=== PATIENT | female | born 1950 | race Caucasian/White ===

== ENCOUNTER 2019-11-19 03:11 | Observation (INO) | payer OTHER, MEDICARE ==
[~2019-11-19] VITALS: Ht 157.5 cm; Wt 102.7 kg
[2019-11-19] MEDS ORDERED: CEFTRIAXONE PMX 1GM/50ML 50 ML IVPB ONE (03:30)
[2019-11-19] MEDS ORDERED: LORazepam 2 MG/ML, 1ML IVPush ONE (03:30)
[2019-11-19] MEDS ORDERED: ONDANSETRON 2MG/ML, 2ML IVPush ONE (03:30)
[2019-11-19] MEDS ORDERED: SODIUM CHLORIDE FLUSH 10ML SYR IVF ONE (03:30)
[2019-11-19] MEDS ORDERED: AZITHROMYCIN 500 MG in SODIUM CHLORIDE 0.9% 250 ML IVPB ONE (03:30)
[2019-11-19] MEDS ORDERED: ASPIRIN 325 MG TABLET PO ONE (03:30)
[2019-11-19 03:35] LABS: BASOPHILS # (AUTO) 0.04 x10^3/uL (0-0.1); BASOPHILS % (AUTO) 0 % (0-1); EOSINOPHILS # (AUTO) 0.27 x10^3/uL (0-0.4); EOSINOPHILS % (AUTO) 2 % (1-7); LYMPHOCYTES # (AUTO) 2.33 x10^3/uL (1-3.4); LYMPHOCYTES % (AUTO) 19 % (22-44); MD NO; MEAN CORPUSCULAR HEMOGLOBIN 30.6 pg (27.0-34.8); MEAN CORPUSCULAR VOLUME 92.8 fL (80-100); MEAN PLATELET VOLUME 8.6 fL (7.4-10.4); MONOCYTES # (AUTO) 0.88 x10^3/uL (0.2-0.8); MONOCYTES % (AUTO) 7 % (2-9); NEUTROPHILS # (AUTO) 8.57 x10^3/uL (1.8-6.8); NEUTROPHILS % (AUTO) 71 % (42-75); PLATELET COUNT 308 x10^3/uL (130-400); RED BLOOD COUNT 4.95 x10^6/uL (3.82-5.3); RED CELL DISTRIBUTION WIDTH 13.6 % (9.6-15.2)
[2019-11-19 03:44] LABS: INTERNATIONAL NORMALIZED RATIO 0.92 (0.93-1.1); PROTHROMBIN TIME 9.7 Seconds (9.6-11.5)
[2019-11-19 03:46] LABS: ALANINE AMINOTRANSFERASE 29 U/L (12-78); ALBUMIN 3.3 g/dL (3.4-5.0); ANION GAP 4 mmol/L (5-15); CALCIUM 8.4 mg/dL (8.5-10.1); CHLORIDE 111 mmol/L (98-107); CREATININE 1.05 mg/dL (0.55-1.02)
[2019-11-19 03:50] LABS: ALKALINE PHOSPHATASE 139 U/L (45-117); BILIRUBIN,TOTAL 0.3 mg/dL (0.2-1.0); TOTAL PROTEIN 6.9 g/dL (6.4-8.2); TROPONIN I < 0.015 ng/mL (0.000-0.045)
[2019-11-19] MEDS ORDERED: HEPARIN 5,000 UNITS/ML, 1ML IV ONE (04:00)
[2019-11-19] MEDS ORDERED: HEPARIN 5,000 UNITS/ML, 1ML IV PRN (04:00)
[2019-11-19] MEDS ORDERED: HEPARIN 25,000 UNITS/250ML PMX 250 ML IV PRN (04:00)
--- NOTE | 2019-11-19 04:50 | NUR ---
PT EDUCATED ON NEED FOR URINE SAMPLE, PT STS UNABLE TO PEE
[2019-11-19] MEDS ORDERED: OMNIPAQUE 350 MG/ML, 100ML BOTTLE ONE (06:05)
[2019-11-19] MEDS ORDERED: LISINOPRIL (06:21)
[2019-11-19] MEDS ORDERED: ATORVASTATIN (06:21)
[2019-11-19 07:43] LABS: MICROSCOPIC NOT IND
[2019-11-19 07:45] LABS: CULTURE INDICATED? NO
[2019-11-19] MEDS ORDERED: OXYcodone IR 5MG TABLET PO PRN (08:30)
[2019-11-19] MEDS ORDERED: POLYETHYLENE GLYCOL 17 GM PACKET PO PRN (08:30)
[2019-11-19] MEDS ORDERED: ACETAMINOPHEN 325 MG TABLET PO PRN (08:30)
[2019-11-19] MEDS ORDERED: PROMETHAZINE 25 MG/ML, 1ML IM PRN (08:30)
[2019-11-19] MEDS ORDERED: DOCUSATE 100 MG CAPSULE PO PRN (08:30)
[2019-11-19] MEDS ORDERED: morphine SULFATE 10 MG/ML, 1ML IVPush PRN (08:30)
[2019-11-19] MEDS ORDERED: hydrALAzine 20 MG/ML, 1ML IVPush PRN (08:30)
[2019-11-19] MEDS ORDERED: ONDANSETRON ODT 4 MG PO PRN (08:30)
[2019-11-19] MEDS ORDERED: BISACODYL 10 MG SUPP PR PRN (08:30)
--- NOTE | 2019-11-19 08:43 | NUR ---
PT TO MRI VIA CONCEPCION
[2019-11-19 09:02] LABS: FREE T4 (FREE THYROXINE) 1.09 ng/dL (0.76-1.46)
[2019-11-19] MEDS ORDERED: ASPIRIN 325 MG TABLET EC ONE (09:32)
[2019-11-19] MEDS ORDERED: ONDANSETRON 2MG/ML, 2ML ONE (09:32)
[2019-11-19] MEDS ORDERED: HEPARIN 5,000 UNITS/ML, 1ML ONE (09:32)
[2019-11-19] MEDS: SODIUM CHLORIDE 0.9% 1,000 ML IV SCH ×2 (09:39→21:57)
[2019-11-19] MEDS: ASPIRIN 325 MG TABLET EC PO SCH (09:39)
[2019-11-19] MEDS: HEPARIN 5,000 UNITS/ML, 1ML SQ SCH ×2 (09:43→16:54)
[2019-11-19] MEDS ORDERED: LISINOPRIL 10 MG TABLET ONE (11:38)
[2019-11-19] MEDS: LISINOPRIL 10 MG TABLET PO SCH (11:40)
[2019-11-19 13:24] VITALS: BP 161/77
[2019-11-19 15:23] LABS: TROPONIN I < 0.015 ng/mL (0.000-0.045)
[2019-11-19 17:41] LABS: TROPONIN I < 0.015 ng/mL (0.000-0.045)
[2019-11-19 18:40] VITALS: BP 162/82
[2019-11-19 20:21] LABS: TROPONIN I < 0.015 ng/mL (0.000-0.045)
[2019-11-19] MEDS: ATORVASTATIN 40 MG TABLET PO SCH ×2 (21:00→21:47)
[2019-11-19] MEDS: ONDANSETRON 2MG/ML, 2ML IVPush PRN (21:47)
[2019-11-20] VITALS (7 sets, daily range): BP systolic 145–175; BP diastolic 65–120
[2019-11-20] MEDS: HEPARIN 5,000 UNITS/ML, 1ML SQ SCH ×3 (00:30→16:12)
[2019-11-20] MEDS: ASPIRIN 325 MG TABLET EC PO SCH (01:24)
[2019-11-20 06:43] LABS: ALANINE AMINOTRANSFERASE 27 U/L (12-78); ALBUMIN 2.8 g/dL (3.4-5.0); ANION GAP 4 mmol/L (5-15); CALCIUM 8.4 mg/dL (8.5-10.1); CHLORIDE 114 mmol/L (98-107); CREATININE 0.95 mg/dL (0.55-1.02)
[2019-11-20 06:46] LABS: ALKALINE PHOSPHATASE 134 U/L (45-117); BILIRUBIN,TOTAL 0.3 mg/dL (0.2-1.0); CHOL/HDL RATIO 3.3; CHOLESTEROL, TOTAL 160 mg/dL (140-239); HDL CHOL % 31 % (28-40); HDL CHOLESTEROL (DIRECT) 49 mg/dL (40-60); LDL CHOLESTEROL,CALCULATED 82 mg/dL (54-169); LDL/HDL RATIO 1.7 (0.5-3.0); TOTAL PROTEIN 6.6 g/dL (6.4-8.2); TRIGLYCERIDES 144 mg/dL (50-200); VLDL CHOLESTEROL 29 mg/dL (0-25)
[2019-11-20 07:40] LABS: BASOPHILS # (AUTO) 0.04 x10^3/uL (0-0.1); BASOPHILS % (AUTO) 0 % (0-1); EOSINOPHILS % (AUTO) 2 % (1-7); LYMPHOCYTES # (AUTO) 3.04 x10^3/uL (1-3.4); LYMPHOCYTES % (AUTO) 26 % (22-44); MD NO; MEAN CORPUSCULAR HEMOGLOBIN 30.7 pg (27.0-34.8); MEAN CORPUSCULAR HGB CONC 32.9 g/dL (32.4-35.8); MEAN CORPUSCULAR VOLUME 93.1 fL (80-100); MEAN PLATELET VOLUME 8.1 fL (7.4-10.4); MONOCYTES # (AUTO) 0.76 x10^3/uL (0.2-0.8); MONOCYTES % (AUTO) 7 % (2-9); NEUTROPHILS # (AUTO) 7.65 x10^3/uL (1.8-6.8); NEUTROPHILS % (AUTO) 65 % (42-75); PLATELET COUNT 328 x10^3/uL (130-400); RED CELL DISTRIBUTION WIDTH 13.6 % (9.6-15.2)
[2019-11-20] MEDS: LISINOPRIL 10 MG TABLET PO SCH (08:15)
[2019-11-20] MEDS: ONDANSETRON 2MG/ML, 2ML IVPush PRN ×2 (08:17→15:22)
[2019-11-20] MEDS ORDERED: REGADENOSON 0.4 MG/5 ML SYRINGE ONE (09:22)
[2019-11-20] MEDS ORDERED: AMLO-150 PO (15:54)
[2019-11-20] MEDS ORDERED: LISI-167 PO (15:54)
[2019-11-20] MEDS ORDERED: CLON-275 PO (15:54)
[2019-11-20] MEDS ORDERED: LISINOPRIL 20 MG TABLET PO SCH (16:00)
[2019-11-20] MEDS ORDERED: MECLIZINE 12.5 MG TABLET PO ONE (16:30)
[2019-11-20] MEDS ORDERED: ONDA4TAB7 PO (16:44)
[2019-11-20] MEDS ORDERED: AMLODIPINE 10 MG TAB ONE (18:19)
[2019-11-21] MEDS ORDERED: AMLODIPINE 10 MG TAB PO SCH (09:00)
== END 2019-11-20 18:28 | disposition home or self-care (01) ==
LOC: ED 06:30 → INTOOBSV 07:13 → EDIP 07:13 → 4EST 11:59
PROVIDERS: ADMIT Internal Medicine; ATTEND Internal Medicine
DX: I65.22 Occlusion and stenosis of left carotid artery (principal); D72.829 Elevated white blood cell count, unspecified; I70.90 Unspecified atherosclerosis; R42 Dizziness and giddiness; R55 Syncope and collapse; R07.89 Other chest pain; R06.00 Dyspnea, unspecified; I10 Essential (primary) hypertension; E78.5 Hyperlipidemia, unspecified; E66.01 Morbid (severe) obesity due to excess calories; Z79.899 Other long term (current) drug therapy
CPT/HCPCS: 36415; 70450; 70496; 70498; 70551; 71045; 78452; 80053; 80061; 81003; 83036; 83735; 83880; 84439; 84443; 84484; 85025; 85610; 85730; 93005; 93017; 93306; 93880; 96361; 96372; 96374; 96375; 96376; 97162; 97165; 99285; A9502; G0378; J0360; J1644; J2405; J2785; J7030; Q9967